=== PATIENT | female | born 1955 | race Caucasian/White ===

== ENCOUNTER → 2018-10-14 | Outpatient (CLI) | payer SELFPAY ==
--- NOTE | 2018-10-14 11:10 | EMB_PTH ---
PATIENT: JESSEE SCHUMCAHER LOC: [facility] U#:[id number] AGE/SX: 63/F ROOM: RE10/14/[address]: Dr. Murali Eason MD : [id number] BED: DIS: 10/14/2018 SPEC #: [id number] RECD: 10/15/18 10:36 STATUS: ARELY CALRY #: [id number] LEISA: 10/14/18 11:[address]: Murali Eason DEPT: SURGICAL PATHOLOGY RECD BY: Jesus Borja Tissues: Endometrium, NOS Procedures: Surgery Specimen Level IV HEADER OPERATION: Endometrial biopsy PRE-OP DIAGNOSIS: Postmenopausal bleeding TISSUE SUBMITTED: Endometrial biopsy MICROSCOPIC DIAGNOSIS Endometrial biopsy: Strips of benign endometrial epithelium and superficial fragments of benign endometrial tissue, consistent with atrophic endometrium. Fragments of benign endocervical epithelium. SJ:clemencia 10/16/18 COMMENT Case has been reviewed in consultation with Dr. Jimenez who concurs with the above diagnosis. IDC:AM MICROSCOPIC DESCRIPTION Slides are reviewed. GROSS DESCRIPTION Received in fixative is one container labeled with the patient's name and designated EM biopsy. The specimen consists of multiple fragments of hemorrhagic soft tissue that in aggregate measure 2 x 0.5 x 0.1 cm. The specimen is totally submitted in one cassette. / SJ:rg 10/15/18 TC:4 CPT: 51988
== END | disposition home or self-care (01) ==
PROVIDERS: Referring Provider Obstetrics & Gynecology; Visit Provider Obstetrics & Gynecology
DX: N95.0 Postmenopausal bleeding (principal)
CPT/HCPCS: 88305

== ENCOUNTER → 2019-05-20 | Outpatient (CLI) | payer SELFPAY ==
[2019-05-20 10:34] LABS: Pathologist Comment May follow
[2019-05-20 11:37] LABS: Synovial Fld Mononuclear WBC % 93.5 %; Synovial Fld Polynuclear WBC # 0.039 10^3/uL; Synovial Fld Polynuclear WBC % 6.5 %
[2019-05-20 11:59] LABS: AUTO B FLUID DILUENT BKGD CT WBC <0.1 RBC <0.01 (W<.1,R<.01); Appearance /Synovial Fluid Sl Cl (CLEAR); Color / Synovial Fluid Yellow (Pale Yellow); Source / Synovial Fluid LEFT KNEE; Source- Body Fluid SYNOVIAL
[2019-05-20 13:20] LABS: Lymph 82 %; Monocyte /Synovial Fluid 11 %; Neutrophil 7 % (0-25)
[2019-05-20 13:21] LABS: RBC /Synovial Fluid 49 /mm3 (0)
[2019-05-21 09:21] LABS: Pathologist Review Reviewed
== END | disposition home or self-care (01) ==
PROVIDERS: PCP Family Medicine; Referring Provider Physician Assistant; Visit Provider Physician Assistant
DX: M25.462 Effusion, left knee (principal)
CPT/HCPCS: 87070; 87075; 87205; 89050; 89051; 89060